=== PATIENT | female | born 1995 | race Caucasian/White ===

== ENCOUNTER 2017-07-05 16:37 | Emergency (ER) | payer BC, OTHER ==
[2017-07-05 17:14] VITALS: BP 111/70
[2017-07-05] MEDS ORDERED: Lidocaine 1% 10 ML MDV INJECT ONE (17:17)
--- NOTE | 2017-07-05 17:21 | EDM.PDOC ---
ED HPI GENERAL MEDICAL PROBLEM - General Chief Complaint: Upper Extremity Injury/Pain Stated Complaint: RIGHT THUMB LACERATION Time Seen by Provider: 07/05/17 17:14 Source of Information: Reports: Patient History Limitations: Reports: No Limitations - History of Present Illness INITIAL COMMENTS - FREE TEXT/NARRATIVE: Patient is a 21-year-old female presents ED complaining of laceration to the distal aspect of her right thumb. Patient states she was cutting cantaloupe and actually cut her finger. Cut is deep with mild to moderate pain present. Tetanus status up-to-date. Patient denies any numbness or tingling. - Related Data Allergies Allergy/AdvReac Type Severity Reaction Status Date / Time latex Allergy Hives Verified 07/05/17 17:06 peanuts Allergy Anaphylactic Uncoded 07/05/17 17:06 Shock strawberries Allergy Swelling Uncoded 07/05/17 17:06 Home Meds: Home Meds . [No Known Home Meds] 07/05/17 [History] Review of Systems - Review of Systems Review Of Systems: ROS reveals no pertinent complaints other than HPI. ED EXAM, GENERAL - Physical Exam Exam: See Below Exam Limited By: No Limitations General Appearance: Alert, WD/WN, No Apparent Distress Ears: Hearing Grossly Normal Nose: Normal Inspection Throat/Mouth: Normal Voice, No Airway Compromise Neck: Normal Inspection, Supple Respiratory/Chest: No Respiratory Distress, No Accessory Muscle Use Cardiovascular: Normal Peripheral Pulses, Regular Rate, Rhythm Peripheral Pulses: 2+: Radial (R) Extremities: Other (Small 1 cm laceration to the lateral aspect of the distal tip of the right thumb. Bleeding controlled. Pain with palpation. No other concerning findings.) Neurological: Alert, Oriented, Normal Cognition, No Motor/Sensory Deficits Psychiatric: Normal Affect, Normal Mood Skin Exam: Warm, Dry, Normal Color Course - Vital Signs Last Recorded V/S: Last Vital Signs Temp 98.4 F 07/05/17 17:07 Pulse 86 07/05/17 17:07 Resp 12 07/05/17 17:07 BP 111/70 07/05/17 17:07 Pulse Ox 100 07/05/17 17:07 - Orders/Labs/Meds Orders: Active Orders 24 hr Category Date Time Status Lidocaine 1% [Xylocaine 1%] Med 07/05/17 17:17 Once 10 ml INJECT ONETIME ONE - Re-Assessments/Exams Free Text/Narrative Re-Assessment/Exam: Ordered 1% lidocaine. Laceration closed no complications. We'll discharge patient home with instructions as documented. Departure - Departure Time of Disposition: 17:19 Disposition: Home, Self-Care 01 Condition: Good Clinical Impression: Thumb laceration Qualifiers: Encounter type: initial encounter Damage to nail status: without damage Foreign body presence: without foreign body Laterality: right Qualified Code(s) : S61.011A - Laceration without foreign body of right thumb without damage to nail, initial encounter - Discharge Information Referrals: Nadia Hu DO [Primary Care Provider] - Forms: ED Department Discharge, ED Return to Work/School Form Additional Instructions: Cleanse site twice daily with soap and water, pat dry, reapply Triple Antibiotic ointment, and dressing. Keep area clean and dry. Do not soak the wound. Follow-up with PCP or provider at the [facility] in 10 days for suture removal. Return to the ED for any new or worsening symptoms. - My Orders Last 24 Hours: My Active Orders 07/05/17 17:17 Lidocaine 1% [Xylocaine 1%] 10 ml INJECT ONETIME ONE - Assessment/Plan Last 24 Hours: My Active Orders 07/05/17 17:17 Lidocaine 1% [Xylocaine 1%] 10 ml INJECT ONETIME ONE
== END 2017-07-05 17:46 | disposition home or self-care (01) ==
LOC: JD.ED 16:37
DX: S61.011A Laceration without foreign body of right thumb without damage to nail, initial encounter (principal); Z91.040 Latex allergy status; Z91.010 Allergy to peanuts; Z91.018 Allergy to other foods; W45.8XXA Other foreign body or object entering through skin, initial encounter
CPT/HCPCS: 12001; 99282; 99283-25